=== PATIENT | female | born 1980 | race Caucasian/White ===

== ENCOUNTER 2017-06-16 11:53 | Emergency (ER) | payer OTHER ==
[~2017-06-16] VITALS: Ht 160 cm; Wt 59.0 kg
--- NOTE | 2017-06-16 12:14 | Urgent Treatment Center Report ---
History of Present Issue Date/Time Seen by Provider 06/16/17 1206 Visit Reason Pt arrived:Walked Presenting Problem:PT C/O BODYACHES, FEVER, FELIX, CHILLS, STUFFY NOSE SINCE LAST NIGHT Location if Accident: Onset of symptoms date/time:/ or onset unknown for:MEDICAL HX UNKNOWN Have you (or family members/close friends) recently traveled outside the [place]? N If Yes, where/when: Have you had exposure to infectious disease within the past month? TB? Other? Specify: c/o "I think I have the flu". sudden onset subjective fever, aches, chills, headache, sore throat, nasal congestion, mild cough yesterday. Feels worse this morning. Reports exposed to flu at work and has not had flu vaccine. 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 Denies SOA, wheezing. Source patient Exam Limitations no limitations ALLERGIES Coded Allergies: aspirin (Mild, 04/17/16) Uncoded Allergies: PCN (Mild, 04/17/16) Home Medications Active Scripts CEPHALEXIN (Keflex 500MG Capsule) 500 MG PO Q8H #30 CAP Prov: 03/25/15 Prednisone (Prednisone 20MG) 20 MG PO BID #10 TAB Prov: 03/25/15 CEPHALEXIN (Keflex 500MG Capsule) 500 MG PO Q8H #21 CAP Prov: 12/20/16 SULFAMETHOXAZOLE/TRIMETHOPRIM (Sulfamethoxazole-Tmp Ds Tablet) 1 TAB PO BID #14 TAB Prov: 12/20/16 MUPIROCIN 2% (Bactroban Oint) 1 BHARAT TP BID #1 TUBE Prov: 12/20/16 Tramadol Hcl (Ultram 50MG) 50 MG PO TID #15 TAB Prov: 12/20/16 Azithromycin (Zithromax 250 Mg) 250 MG PO DAILY #6 TAB Prov: 04/17/16 Benzonatate (Tessalon Perle) 100 MG PO Q4HP PRN couph #20 SGL Prov: 04/17/16 ONDANSETRON HCL (Zofran 4MG Tab) 4 MG PO Q6HP PRN NAUSEA AND VOMITING #12 TAB Prov: 04/17/16 Ondansetron (Zofran 4MG Odt) 4 MG PO Q6HP PRN NAUSEA AND VOMITING #28 ODT Prov: 11/13/16 Amoxicillin/Potassium Clav (Augmentin 875-125 Tablet) 1 EACH PO BID #14 TAB Prov: 11/13/16 Reported Medications Lorazepam (Lorazepam 0.5MG) 0.5 MG OR BID History Medical History General CAD? No Angina: No GA: No Hypertension? No Hyperlipidemia? No CHF? No DVT? No PE? No COPD? No Asthma? No Anemia? Yes GERD? No Gastric ulcers? No GI Bleed? No Hernia? No Thyroid Problems? No Hypothyroidism? No CVA? No Seizures? Yes Diabetes? No Renal Insuffiency? No UTI? No Stones? No BPH? No GB Disease: No Nephritic Syndrome? No Asplenia? No Hepatitis? No Sickle Cell Disease? No Arthritis? No Migraines? No Cataracts? No Glaucoma? No MRSA? No HIV? No TB? No Anxiety? No Depression? No Cancer? No More? No Immunization HX DT/Tetanus 5-10 Years Ago Flu 2YRSorMore Pneumonia NEVER Surgical Hx Previous Surgery?Y TUBAL LIGATION ECTOPIC Family History Family HX Diabetes No CAD No Hypertension No Hyperlipidemia No Cancer Yes TB No Social History Smoking Hx Smoker: Current Every Day Smoker Tobacco: Yes Type Cigarettes Packs/day < 1 Pack Alcohol Alcohol: No Review of Systems All Other Systems Reviewed and Negative Constitutional see HPI Eyes denies drainage, denies pain ENT see HPI, ear pain (right), nose discharge (clear). denies: ear discharge, throat swelling. Respiratory see HPI Cardiovascular denies chest pain Gastrointestinal denies no symptoms reported Musculoskeletal see HPI Skin denies rash Psychiatric/Neurological headache (improves w/ tylenol) Physical Exam Vital Signs Vital Signs Date Time Temp Pulse Resp B/P Pulse O2 O2 Flow FiO2 Ox Delivery Rate 06/16 1235 98.3 87 18 166/96 98 06/16 1203 98.3 87 18 166/96 98 General Appearance normal appearance, no apparent distress, one male visitor in room, very heavy cig smoke smell in room Eye Exam - bilateral eye normal exam Ear, Nose, Throat normal ENT inspection (x/ mild pharyngeal erythema) Neck non-tender, supple Respiratory Status No: respiratory distress, productive cough, non productive cough. Lung Sounds anterior: lungs clear. posterior: lungs clear. bilateral: lungs clear. Cardiovascular regular rate/rhythm, no peripheral edema, no murmur Neurologic alert, oriented x 3 Mental status normal mood/affect Skin normal color, warm/dry Lymphatic no adenopathy Medical Decision Making LABS/Meds/Orders Pt receiving controlled substance in ED? No Results/Orders Laboratory Tests 06/16/17 1210: Group A Strep Screen NOT DETECTED 06/16/17 1205: Influenza Type A Ag NOT DETECTED, Influenza Type B Ag NOT DETECTED Orders Procedure Date/time Status [facility] STREP SCREEN 06/16 1214 Complete [facility] FLU A,B 06/16 1205 Complete Departure Departure Time of Disposition 1229 Disposition DC Home or Self Care(routine) Clinical Impression Primary Impression: Viral illness Condition STABLE Referrals Andrea PRESLEY,Hardeep Dang (Family) IMMEDIATELY for new or worsening symptoms OR no noticeable improvement over the next 48-72 hours. 911 for difficulty breathing or swallowing. Patient Instructions DI for Viral Syndrome Additional Instructions * No sign of bacterial infection. Likely viral. Virus can take 7-14 days to run their course * negative flu and strep tests * Monitor Temp. Tylenol every 4 hours as needed no more then 5 times a day and/ or ibuprofen every 6 hours as needed (as long as your primary care doctor has told you that it is ok to take both) for fever/aches/pain. ER if fever no less than 101 despite tylenol and ibuprofen * Encourage fluids, water, gatorade, powerade, pedialyte if /toddler/child * warm salt water gargles * warm fluids * sore throat lozenges * sleep elevated * humidifier/vaporizer * * Your throat swab was sent for culture. Those results are typically sent to your primary care. Be sure to follow up in 2-3 days if no improvement so they can review those results and treat if necessary. If you don't have primary care, I recommend you get one but in the mean time, you will have to return to a walk in clinic. Discharge Counseling Counseled pt/family regarding diagnosis, test results, medications/RX, home care, follow up needs at [phone]
--- NOTE | 2017-06-16 12:14 | Urgent Treatment Center Report ---
History of Present Issue Date/Time Seen by Provider 06/16/17 1206 Visit Reason Pt arrived:Walked Presenting Problem:PT C/O BODYACHES, FEVER, FELIX, CHILLS, STUFFY NOSE SINCE LAST NIGHT Location if Accident: Onset of symptoms date/time:/ or onset unknown for:MEDICAL HX UNKNOWN Have you (or family members/close friends) recently traveled outside the [place]? N If Yes, where/when: Have you had exposure to infectious disease within the past month? TB? Other? Specify: c/o "I think I have the flu". sudden onset subjective fever, aches, chills, headache, sore throat, nasal congestion, mild cough yesterday. Feels worse this morning. Reports exposed to flu at work and has not had flu vaccine. 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 Denies SOA, wheezing. Source patient Exam Limitations no limitations ALLERGIES Coded Allergies: aspirin (Mild, 04/17/16) Uncoded Allergies: PCN (Mild, 04/17/16) Home Medications Active Scripts CEPHALEXIN (Keflex 500MG Capsule) 500 MG PO Q8H #30 CAP Prov: 03/25/15 Prednisone (Prednisone 20MG) 20 MG PO BID #10 TAB Prov: 03/25/15 CEPHALEXIN (Keflex 500MG Capsule) 500 MG PO Q8H #21 CAP Prov: 12/20/16 SULFAMETHOXAZOLE/TRIMETHOPRIM (Sulfamethoxazole-Tmp Ds Tablet) 1 TAB PO BID #14 TAB Prov: 12/20/16 MUPIROCIN 2% (Bactroban Oint) 1 BHARAT TP BID #1 TUBE Prov: 12/20/16 Tramadol Hcl (Ultram 50MG) 50 MG PO TID #15 TAB Prov: 12/20/16 Azithromycin (Zithromax 250 Mg) 250 MG PO DAILY #6 TAB Prov: 04/17/16 Benzonatate (Tessalon Perle) 100 MG PO Q4HP PRN couph #20 SGL Prov: 04/17/16 ONDANSETRON HCL (Zofran 4MG Tab) 4 MG PO Q6HP PRN NAUSEA AND VOMITING #12 TAB Prov: 04/17/16 Ondansetron (Zofran 4MG Odt) 4 MG PO Q6HP PRN NAUSEA AND VOMITING #28 ODT Prov: 11/13/16 Amoxicillin/Potassium Clav (Augmentin 875-125 Tablet) 1 EACH PO BID #14 TAB Prov: 11/13/16 Reported Medications Lorazepam (Lorazepam 0.5MG) 0.5 MG OR BID History Medical History General CAD? No Angina: No [place]: No Hypertension? No Hyperlipidemia? No CHF? No DVT? No PE? No COPD? No Asthma? No Anemia? Yes GERD? No Gastric ulcers? No GI Bleed? No Hernia? No Thyroid Problems? No Hypothyroidism? No CVA? No Seizures? Yes Diabetes? No Renal Insuffiency? No UTI? No Stones? No BPH? No GB Disease: No Nephritic Syndrome? No Asplenia? No Hepatitis? No Sickle Cell Disease? No Arthritis? No Migraines? No Cataracts? No Glaucoma? No MRSA? No HIV? No TB? No Anxiety? No Depression? No Cancer? No More? No Immunization HX DT/Tetanus 5-10 Years Ago Flu 2YRSorMore Pneumonia NEVER Surgical Hx Previous Surgery?Y TUBAL LIGATION ECTOPIC Family History Family HX Diabetes No CAD No Hypertension No Hyperlipidemia No Cancer Yes TB No Social History Smoking Hx Smoker: Current Every Day Smoker Tobacco: Yes Type Cigarettes Packs/day < 1 Pack Alcohol Alcohol: No Review of Systems All Other Systems Reviewed and Negative Constitutional see HPI Eyes denies drainage, denies pain ENT see HPI, ear pain (right), nose discharge (clear). denies: ear discharge, throat swelling. Respiratory see HPI Cardiovascular denies chest pain Gastrointestinal denies no symptoms reported Musculoskeletal see HPI Skin denies rash Psychiatric/Neurological headache (improves w/ tylenol) Physical Exam Vital Signs Vital Signs Date Time Temp Pulse Resp B/P Pulse O2 O2 Flow FiO2 Ox Delivery Rate 06/16 1235 98.3 87 18 166/96 98 06/16 1203 98.3 87 18 166/96 98 General Appearance normal appearance, no apparent distress, one male visitor in room, very heavy cig smoke smell in room Eye Exam - bilateral eye normal exam Ear, Nose, Throat normal ENT inspection (x/ mild pharyngeal erythema) Neck non-tender, supple Respiratory Status No: respiratory distress, productive cough, non productive cough. Lung Sounds anterior: lungs clear. posterior: lungs clear. bilateral: lungs clear. Cardiovascular regular rate/rhythm, no peripheral edema, no murmur Neurologic alert, oriented x 3 Mental status normal mood/affect Skin normal color, warm/dry Lymphatic no adenopathy Medical Decision Making LABS/Meds/Orders Pt receiving controlled substance in ED? No Results/Orders Laboratory Tests 06/16/17 1210: Group A Strep Screen NOT DETECTED 06/16/17 1205: Influenza Type A Ag NOT DETECTED, Influenza Type B Ag NOT DETECTED Orders Procedure Date/time Status [facility] STREP SCREEN 06/16 1214 Complete [facility] FLU A,B 06/16 1205 Complete Departure Departure Time of Disposition 1229 Disposition DC Home or Self Care(routine) Clinical Impression Primary Impression: Viral illness Condition STABLE Referrals Andrea PRESLEY,Hardeep aDng (Family) IMMEDIATELY for new or worsening symptoms OR no noticeable improvement over the next 48-72 hours. 911 for difficulty breathing or swallowing. Patient Instructions DI for Viral Syndrome Additional Instructions * No sign of bacterial infection. Likely viral. Virus can take 7-14 days to run their course * negative flu and strep tests * Monitor Temp. Tylenol every 4 hours as needed no more then 5 times a day and/ or ibuprofen every 6 hours as needed (as long as your primary care doctor has told you that it is ok to take both) for fever/aches/pain. ER if fever no less than 101 despite tylenol and ibuprofen * Encourage fluids, water, gatorade, powerade, pedialyte if /toddler/child * warm salt water gargles * warm fluids * sore throat lozenges * sleep elevated * humidifier/vaporizer * * Your throat swab was sent for culture. Those results are typically sent to your primary care. Be sure to follow up in 2-3 days if no improvement so they can review those results and treat if necessary. If you don't have primary care, I recommend you get one but in the mean time, you will have to return to a walk in clinic. Discharge Counseling Counseled pt/family regarding diagnosis, test results, medications/RX, home care, follow up needs at [phone]
[2017-06-16 12:35] VITALS: BP 166/96
--- OUTSIDE RECORDS SUMMARY | 2017-06-25 06:33 | External Medical Summary Rpt | CCD ---
Author Author , [facility] Organization [facility] Address Unknown Phone [email or web address] Purpose Continuity of Care Document - 03-20-2017 through 2016 Results Labs Lab Lab Date Result Refere Interp Status Commen Order Detail nces retati t Range on Drugs identified in Urine by Screen method (06-17-2017 10:40) Ampheta NEGATIV <1000 complet mine 017 E ed [Presen 10:40 ce] in Urine by Screen method NEGATIV <50 complet oxy 017 E ed delta-9 10:40 tetrahy drocann abinol [Presen ce] in Unspeci fied specime n Streptococcus pyogenes Ag [Presence] in Unspecified specimen (06-16-2017 12:10) Strepto NOT NOTDETE complet coccus 017 DETECTE CTED ed pyogene 12:10 D s Ag [Presen ce] in Unspeci fied specime n Influenza virus A+B Ag [Presence] in Unspecified specimen (06-16-2017 12:05) Influen NOT NOT complet za 017 DETECTE DETECTD ed virus A 12:05 D Ag [Presen ce] in Unspeci fied specime n INFLUEN NOT NOT complet ZA B 017 DETECTE DETECTD ed ANTIGEN 12:05 D Drugs identified in Urine by Screen method (03-20-2017 15:00) Ampheta NEGATIV <1000 complet mine 017 E ed [Presen 15:00 ce] in Urine by Screen method Hydr NEGATIV <50 complet oxy 017 E ed delta-9 15:00 tetrahy drocann abinol [Presen ce] in Unspeci fied specime n
--- OUTSIDE RECORDS SUMMARY | 2017-06-25 06:33 | External Medical Summary Rpt | CCD ---
Author Author [employer] Organization [employer] Address Unknown Phone Unavailable Purpose Continuity of Care Document - through 2016
--- OUTSIDE RECORDS SUMMARY | 2017-06-25 06:33 | External Medical Summary Rpt | CCD ---
Author Author , [facility] Organization [facility] Address Unknown Phone [email or web address] Purpose Continuity of Care Document - 03-20-2017 [...]
--- OUTSIDE RECORDS SUMMARY | 2017-06-25 06:34 | External Medical Summary Rpt ---
Author Author [facility] Leonardo, DEBORAHVINCENT [employer] Organization [employer] Address Unknown Phone Unavailable Results Drugs identified in Urine by Screen method Observa Value Referen Units Interpr Notes Date tion ce etation Range Positive urine drug screen samples are stored for 7 days. Contact the Lab if confirmation of positives is needed. Ampheta NEGATIV <1000 ng/mL No No Jun 17 mine E informa informa 2017 [Presen tion in tion in 10:40 ce] in source source AM Urine data data by Screen method Barbitura <200 ng/mL No No Jun 17 sammy informati informati 2017 [Mass/vol on in on in 10:40 AM ume] in source source Urine by data data Screen method Benzodiaz 200 ng/mL ng/mL No No Jun 17 epines informati informati 2017 [Mass/vol on in on in 10:40 AM ume] in source source Serum or data data Plasma by Screen method Cocaine <300 ng/g No No Jun 17 [Mass/vol informati informati 2016 ume] in on in on in 10:40 AM Unspecifi source source ed data data specimen Methadone <300 ng/mL No No Jun 17 informati informati 2017 [Mass/vol on in on in 10:40 AM ume] in source source Unspecifi data data ed specimen Opiates <300 ng/mL No No Jun 17 [Mass/vol informati informati 2016 ume] in on in on in 10:40 AM Unspecifi source source ed data data specimen Phencycli <25 ng/mL No No Jun 4 dine informati informati 2017 [Mass/vol on in on in 10:40 AM ume] in source source Unspecifi data data ed specimen 11-Hydr NEGATIV <50 ng/mL No No Jun 17 oxy E informa informa 2017 delta-9 tion in tion in 10:40 source source AM tetrahy data data drocann abinol [Presen ce] in Unspeci fied specime n Streptococcus pyogenes Ag [Presence] in Unspecified specimen Observa Value Referen Units Interpr Notes Date tion ce etation Range Strepto NOT NOTDETE No No LOT # Jun 3 coccus DETECTE CTED informa informa N/A EXP 2017 pyogene D tion in tion in DATE 12:10 s Ag source source N/A PM [Presen data data ce] in Unspeci fied specime n Influenza virus A+B Ag [Presence] in Unspecified specimen Observa Value Referen Units Interpr Notes Date tion ce etation Range Influen NOT NOT No No No Jun 3 za DETECTE DETECTD informa informa informa 2017 virus A D tion in tion in tion in 12:05 Ag source source source PM [Presen data data data ce] in Unspeci fied specime n INFLUEN NOT NOT No No LOT # Jun 3 ZA B DETECTE DETECTD informa informa [id number] 2017 ANTIGEN D tion in tion in EXP 12:05 source source DATE PM data data 2019-05 Drugs identified in Urine by Screen method Observa Value Referen Units Interpr Notes Date tion ce etation Range Positive urine drug screen samples are stored for 7 days. Contact the Lab if confirmation of positives is needed. Ampheta NEGATIV <1000 ng/mL No No Mar 20 mine E informa informa 2016 [Presen tion in tion in 3:00 PM ce] in source source Urine data data by Screen method Barbitura <200 ng/mL No No Mar 20 sammy informati informati 2016 3:00 [Mass/vol on in on in PM ume] in source source Urine by data data Screen method Benzodiaz 200 ng/mL ng/mL No No Mar 20 epines informati informati 2016 3:00 [Mass/vol on in on in PM ume] in source source Serum or data data Plasma by Screen method Cocaine <300 ng/g No No Mar 20 [Mass/vol informati informati 2016 3:00 ume] in on in on in PM Unspecifi source source ed data data specimen Methadone <300 ng/mL No No Mar 20 informati informati 2016 3:00 [Mass/vol on in on in PM ume] in source source Unspecifi data data ed specimen Opiates <300 ng/mL No No Mar 20 [Mass/vol informati informati 2016 3:00 ume] in on in on in PM Unspecifi source source ed data data specimen Phencycli <25 ng/mL No No Mar 20 dine informati informati 2017 3:00 [Mass/vol on in on in PM ume] in source source Unspecifi data data ed specimen 11-Hydr NEGATIV <50 ng/mL No No Mar 20 oxy E informa informa 2017 delta-9 tion in tion in 3:00 PM source source tetrahy data data drocann abinol [Presen ce] in Unspeci fied specime n Benzodiazepines Confirm, Urine Observa Value Referen Units Interpr Notes Date tion ce etation Range Benzodi Positiv Cutoff= ng/mL Abnorma No Mar 20 azepine e 100 l informa 2017 s tion in [Presen source ce] in data Urine Alprazo Negativ Cutoff= No No No Mar 20 bruno e 100 informa informa informa 2017 [Presen tion in tion in tion in ce] in source source source Urine data data data Clonaze Negativ Cutoff= No No No Mar 20 roz e 100 informa informa informa 2017 [Presen tion in tion in tion in ce] in source source source Urine data data data Temazep Negativ Cutoff= No No No Mar 20 am e 100 informa informa informa 2017 [Presen tion in tion in tion in ce] in source source source Urine data data data by Confirm method Triazol Negativ Cutoff= No No No Mar 20 am e 100 informa informa informa 2017 [Presen tion in tion in tion in ce] in source source source Urine data data data Midazol Negativ Cutoff= No No No Mar 20 am e 100 informa informa informa 2017 [Presen tion in tion in tion in ce] in source source source Urine data data data by Confirm method Nordiaz Negativ Cutoff= No No No Mar 20 epam e 100 informa informa informa 2017 [Presen tion in tion in tion in ce] in source source source Urine data data data Please Comment . No No Drug-te Mar 20 Note: informa informa st 2017 tion in tion in results source source should data data be interpr eted in the context of clinica linform ation. Patient metabol ic variabl es, specifi c drug biochemistry teacher ry, andspec imen charact eristic s can affect test outcome . Technic wildu ltation is availab le if a test result is inconsi stent with anexpec lauren outcome . (email- matt hoover @[email or web address] or call [employer] [phone] )Drug brands, if listed herein, are tradema rks of their respect phoebe harden.Perf ormed at: - [facility] [id number] [place], [place] [id number] Directo r: Hardeep Hilton MD, Phone: [phone] Oxazepa Negativ Cutoff= No No No Mar 20 m e 100 informa informa informa 2016 [Presen tion in tion in tion in ce] in source source source Urine data data data Fluraze Negativ Cutoff= No No No Mar 20 roz e 100 informa informa informa 2016 [Presen tion in tion in tion in ce] in source source source Urine data data data Lorazep Positiv . No Abnorma No Mar 20 am e informa l informa 2016 [Presen tion in tion in ce] in source source Urine data data Lorazepam Cutoff=10 ng/mL No Lorazepam Mar 20 0 informati 2017 [Mass/vol on in detected; ume] in source this Urine by data finding Confirm is method consisten t with use of medicatio nsthat include Ativan, or generic formulati ons. Drugs listed arerepres entative of common sources of the compound detected and are notintend ed to include all possible sources.
--- OUTSIDE RECORDS SUMMARY | 2017-06-25 06:34 | External Medical Summary Rpt ---
[...] 3 ZA B DETECTE DETECTD informa informa [id number] 2017 ANTIGEN D tion in tion in [...] metabol ic variabl es, specifi c drug manager chemistry ry, andspec imen charact eristic s can affect test outcome . Technic wildu ltation is availab le if a test result is inconsi stent with anexpec lauren outcome . (email- matt hoover [email or web address] or call [employer] [phone] )Drug brands, if listed herein, are tradema rks of their respect phoebe harden.Perf ormed at: - [facility] [id number] [place], [place] [id number] Directo r: Hardeep Hilton MD, Phone: [phone] Oxazepa Negativ Cutoff= No No No Mar [...]
--- OUTSIDE RECORDS SUMMARY | 2017-06-25 06:34 | External Medical Summary Rpt | CCD ---
Demographics Preferred Language Indonesian Marital Status Unknown Pentecostalism Affiliation Unknown Race Unknown Ethnic Group Unknown Author Author , [facility] BURGER Address Unknown Phone Immunization No patient found.
--- OUTSIDE RECORDS SUMMARY | 2017-06-25 06:34 | External Medical Summary Rpt | CCD ---
Demographics Preferred Language Greek Marital Status Unknown Buddhist Affiliation Unknown Race Unknown Ethnic Group Unknown Author Author , [facility]O BURGER Address Unknown Phone Immunization No patient found.
== END 2017-06-16 12:40 | disposition home or self-care (01) ==
LOC: UTC 11:53
DX: B34.9 Viral infection, unspecified (principal); Z88.0 Allergy status to penicillin; Z88.6 Allergy status to analgesic agent; D64.9 Anemia, unspecified; F17.210 Nicotine dependence, cigarettes, uncomplicated

== ENCOUNTER → 2017-06-17 | Outpatient (CLI) | payer OTHER ==
[~2017-06-17] MED LIST: AUGMENTIN 875-1 EACH PO; BACTROBAN2% TP; CIPRO 500MG TA500 MG PO; KEFLEX 500MG.500 MG PO; LORAZEPAM0.5 MG/TAB OR; MEDROL 4MG. DOSE4 MG PO; PREDNISONE 20MG20 MG PO; SEPTRA DS 800 M1 TAB PO; TESSALON PERLE100 M1 PO; TESSALON PERLE100 MG PO; TRILEPTAL300 MG PO; ULTRAM50 MG PO; VISTARIL25 MG; ZITHROMAX 250M250 MG PO; ZOFRAN ODT4 MG PO; ZOFRAN4 MG PO
[2017-06-17 13:22] LABS: AMPHETAMINES/METAMPHETAMINES NEGATIVE ng/mL (<1000)
[2017-06-22 06:36] LABS: Alprazolam Negative (Cutoff=100); Benzodiazepines Positive ng/mL (Cutoff=100); Clonazepam Negative (Cutoff=100); Flurazepam Negative (Cutoff=100); Lorazepam Positive (.); Midazolam Negative (Cutoff=100); Temazepam Negative (Cutoff=100); Triazolam Negative (Cutoff=100)
== END ==
LOC: LAB 12:56
PROVIDERS: Emergency Medicine
DX: Z79.899 Other long term (current) drug therapy (principal)
CPT/HCPCS: G0480